=== PATIENT | female | born 1985 | race African-American/Black ===

== ENCOUNTER 2021-04-04 06:27 | Emergency (ER) | payer MEDICAID ==
[~2021-04-04] VITALS: Ht 162.6 cm; Wt 72.1 kg
[2021-04-04 06:32] VITALS: BP 123/76
[2021-04-04] MEDS ORDERED: CLON0.5T MT (07:18)
[2021-04-04] MEDS ORDERED: CLONAZEPAM 0.5MG TABLET PO ONE (07:30)
[2021-04-04] MEDS ORDERED: ONDA4TAB5 MT (08:35)
== END 2021-04-04 08:41 | disposition home or self-care (01) ==
LOC: ER 06:27
DX: F41.9 Anxiety disorder, unspecified (principal)
CPT/HCPCS: 99283

== ENCOUNTER 2021-05-09 03:51 | Emergency (ER) | payer MEDICAID ==
[~2021-05-09] VITALS: Ht 162.6 cm; Wt 66.0 kg
[~2021-05-09 03:51] MED LIST: CLON0.5T MT; ONDA4TAB5 MT
[2021-05-09 03:54] VITALS: BP 126/68
[2021-05-09] MEDS ORDERED: CLON1TAB12 MT (05:22)
[2021-05-09] MEDS ORDERED: CLONAZEPAM 1MG TABLET PO ONE (05:30)
== END 2021-05-09 06:42 | disposition home or self-care (01) ==
LOC: ER 04:07
DX: F41.9 Anxiety disorder, unspecified (principal)
CPT/HCPCS: 81025; 99283

== ENCOUNTER 2021-08-22 13:16 | Emergency (ER) | payer MEDICAID ==
[~2021-08-22] VITALS: Ht 167.6 cm; Wt 57.0 kg
[~2021-08-22 13:16] MED LIST changes: +CLON1TAB12 MT
[2021-08-22 14:31] LABS: BASOPHILS % 1.1 % (0.0-2.0); EOSINOPHILS % 0.6 % (0.0-5.0); HEMOGLOBIN. 9.3 g/dL (12.0-16.0); LYMPHOCYTES % 41.2 % (20.0-50.0); MEAN CORPUSCULAR HEMOGLOBIN 24.2 pg (28.0-32.0); MEAN CORPUSCULAR VOLUME 75.4 fL (81.0-99.0); MEAN PLATELET VOLUME 7.7 fl (7.4-10.4); MONOCYTES % 4.9 % (2.0-8.0); NEUTROPHILS % 52.2 % (40.0-76.0); PLATELET 440 x1000/uL (130-400); RED BLOOD CELL COUNT 3.85 mill/uL (4.2-5.4); RED CELL DISTRIBUTION WIDTH 15.3 % (11.6-14.6)
[2021-08-22 14:38] LABS: CHLORIDE 106 mEq/L (98-107); HCG SCREEN NEGATIVE
[2021-08-22 14:41] LABS: ETHANOL BLOOD < 10 mg/dL
[2021-08-22] MEDS ORDERED: CLONAZEPAM 1MG TABLET PO ONE (15:15)
[2021-08-22 15:31] LABS: CLARITY URINE TURBID (CLEAR); COLOR URINE YELLOW (YELLOW); KETONES URINE TRACE (NEGATIVE); LEUKOCYTE ESTERASE URINE TRACE (NEGATIVE); NITRITE URINE NEGATIVE (NEGATIVE); OCCULT BLOOD URINE NEGATIVE (NEGATIVE); PH URINE 7.5 (4.5-8.0); PROTEIN URINE TRACE (NEGATIVE); SPECIFIC GRAVITY URINE 1.027 (1.005-1.030)
[2021-08-22 15:56] LABS: *AMPHETAMINES SCREEN URINE NEGATIVE (NEGATIVE); *BARBITURATES SCREEN URINE NEGATIVE (NEGATIVE); *COCAINE SCREEN URINE NEGATIVE (NEGATIVE); METHADONE URINE SCREEN NEGATIVE (NEGATIVE); OPIATES URINE SCREEN NEGATIVE (NEGATIVE); PHENCYCLIDINE URINE SCREEN NEGATIVE (NEGATIVE)
[2021-08-22] MEDS ORDERED: CLON1TAB12 MT ×3 (16:00→16:31)
[2021-08-22 16:18] VITALS: BP 116/86
[2021-08-22 16:24] LABS: *BENZODIAZEPINES SCREEN URINE PRESUMTIVE POSITIVE (NEGATIVE); CANNABINOID URINE SCREEN PRESUMTIVE POSITIVE (NEGATIVE)
== END 2021-08-22 16:22 | disposition home or self-care (01) ==
LOC: ER 13:35
DX: F41.9 Anxiety disorder, unspecified (principal); I49.9 Cardiac arrhythmia, unspecified; Z90.49 Acquired absence of other specified parts of digestive tract; Z98.890 Other specified postprocedural states
CPT/HCPCS: 36415; 80053; 80305; 80307; 80320; 81003; 84703; 85025; 93005; 99284; G0480

== ENCOUNTER 2022-04-14 23:44 | Emergency (ER) | payer MEDICAID ==
[~2022-04-14] VITALS: Ht 162.6 cm; Wt 65.4 kg
[2022-04-15] MEDS ORDERED: IBUPROFEN 600MG TABLET PO ONE (04:00)
[2022-04-15] MEDS ORDERED: IBUP-2029 MT (04:26)
[2022-04-15 04:41] VITALS: BP 109/79
== END 2022-04-15 04:44 | disposition home or self-care (01) ==
LOC: ER 23:51
DX: M79.644 Pain in right finger(s) (principal); Z98.890 Other specified postprocedural states
CPT/HCPCS: 29130; 73130; 81025; 99283